=== PATIENT | male | born 1935 | race Caucasian/White ===

== ENCOUNTER 2022-03-03 10:34 | Outpatient (CLI) | payer MEDICARE, SELFPAY ==
[2022-03-03 13:12] LABS: Albumin* 3.4 g/dL (3.3-5.0); Chloride* 108 mmol/L (96-114)
[2022-03-03 13:13] LABS: Potassium* 4.2 mmol/L (3.6-5.1); Sodium* 141 mmol/L (135-149)
[2022-03-03 13:15] LABS: Bilirubin Total* 0.7 mg/dL (0.1-1.5); Blood Urea Nitrogen* 25 mg/dL (7-30); Carbon Dioxide* 27 mmol/L (20-32); Cholesterol* 173 mg/dL (90-199); Creatinine* 1.4 mg/dL (0.5-1.5); Estimated Glomerular Filt Rate 49 ml/min; Total Protein* 6.9 g/dL (6.0-8.3)
[2022-03-03 13:16] LABS: Alanine Aminotransferase* 10 U/L (4-50); Alkaline Phosphatase* 79 U/L (40-150); Aspartate Amino Transferase* 22 U/L (12-35); Calcium* 9.2 mg/dL (8.4-10.6); Glucose* 84 mg/dL (60-115); HDL Cholesterol* 42 mg/dL (>=40); LDL Cholesterol Calculated 115 mg/dL (<100); Triglycerides* 80 mg/dL (40-149)
[2022-03-03 13:44] LABS: PSA Screen* 8.94 ng/mL (0.10-4.00)
== END 2022-03-03 10:35 | disposition home or self-care (01) ==
PROVIDERS: PCP Internal Medicine; Visit Provider Internal Medicine
DX: E03.9 Hypothyroidism, unspecified (principal)
CPT/HCPCS: 80053; 80061; 84153; 84443